=== PATIENT | male | born 1950 | race Caucasian/White ===

== ENCOUNTER 2016-12-04 08:41 | Outpatient (CLI) | payer OTHER ==
[2016-12-04 09:41] LABS: eGFR (African) > 60; eGFR (Non-African) > 60
== END 2016-12-04 08:42 ==
LOC: LAB 08:41
PROVIDERS: ATTEND Family Medicine
DX: E78.5 Hyperlipidemia, unspecified (principal)
CPT/HCPCS: 36415; 80053; 80061

== ENCOUNTER 2017-12-03 08:22 | Outpatient (CLI) | payer OTHER ==
[2017-12-03 09:10] LABS: eGFR (African) > 60; eGFR (Non-African) > 60
== END 2017-12-03 08:23 ==
LOC: LAB 08:22
PROVIDERS: ATTEND Family Medicine
DX: E78.5 Hyperlipidemia, unspecified (principal)
CPT/HCPCS: 36415; 80053; 80061

== ENCOUNTER 2017-12-30 07:58 | Outpatient (CLI) | payer OTHER | END 2017-12-30 08:00 | LOC: RAD 07:58 | PROVIDERS: ATTEND Family Medicine | DX: Z13.6 Encounter for screening for cardiovascular disorders (principal) | CPT/HCPCS: 76705 ==

== ENCOUNTER 2018-05-21 11:14 | Outpatient (CLI) | payer OTHER ==
[2018-05-21 12:56] LABS: eGFR (Non-African) > 60
== END 2018-05-21 11:15 ==
LOC: LAB 11:14
PROVIDERS: ATTEND Family Medicine
DX: I10 Essential (primary) hypertension (principal)
CPT/HCPCS: 36415; 80048

== ENCOUNTER 2018-12-16 08:19 | Outpatient (CLI) | payer OTHER | END 2018-12-16 08:21 | LOC: LAB 08:19 | PROVIDERS: ATTEND Family Medicine | DX: E78.5 Hyperlipidemia, unspecified (principal); R97.20 Elevated prostate specific antigen [PSA] | CPT/HCPCS: 36415; 80053; 80061; 84153 ==

== ENCOUNTER 2019-06-07 08:54 | Day surgery (SDC) | payer OTHER ==
[~2019-06-07 08:54] MED LIST: LACTATED RINGERS 1,000 ML IV.SOLN IV ONE; LIDOCAINE HCL 2% PF 100MG/5ML VIAL IJ ONE; PROPOFOL 200 MG/20 ML VIAL IV ONE
--- NOTE | 2019-06-09 15:54 | GI Report ---
DATE OF PROCEDURE: 06/07/2019 REFERRING PHYSICIAN: Dr. Boykin. PROCEDURE PERFORMED: Screening colonoscopy. SURGEON: Myron Malave M.D., [place] INDICATION FOR PROCEDURE: The patients mother has had polyps. He has never had polyps before. He is referred for a screening colonoscopy. PROCEDURE MEDICATION: Propofol, as per Anesthesia. DESCRIPTION OF PROCEDURE: An Olympus video colonoscope was advanced to the rectum and advanced slowly to the cecum. The appendiceal orifice and terminal ileum are normal. In the ascending colon the patient has a flat polyp with a mucus cap over it. It is about 4 mm size, flat, removed with a cold snare. Suspicious for a serrated adenoma. The remaining part of the ascending colon and transverse colon were normal. Descending colon and sigmoid: Some redundancy but no obvious intraluminal lesions were noted. Retroflexion in the rectum was normal. The patient tolerated the procedure well. FINDINGS: Flat polyp in the ascending colon removed, suspicious for a serrated adenoma. RECOMMENDATIONS: 1. Pending the pathology of the polyp, relook at his colon in 3-5 years. 2. Increase fiber in diet. MYRON MALAVE M.D., F.A.C.P. DOUGLAS/sarita Job#: [id number] Cc: Dr. Boykin [facility]
== END 2019-06-07 11:04 ==
LOC: OPSURG 08:54
PROVIDERS: ATTEND Internal Medicine Gastroenterology
DX: Z12.11 Encounter for screening for malignant neoplasm of colon (principal); Z83.71 Family history of colonic polyps; K63.5 Polyp of colon; K63.89 Other specified diseases of intestine
CPT/HCPCS: 45385; 88305; J2001; J2704; J7120